=== PATIENT | female | born 1940 | race Caucasian/White ===

== ENCOUNTER 2016-07-04 21:46 | Emergency (ER) | payer MEDICARE, BC ==
[~2016-07-04] VITALS: Ht 165.1 cm; Wt 126.0 kg
[~2016-07-04 21:46] MED LIST: AMLO-147 PO; ASPI-650 PO; ATOR20TA17 PO; CALC600T11 PO; HYDR-762 PO; LIRA0.6P2 SQ; MTF1000T PO; NPH,100V10 SC; OMEP20CA16 PO; RES15 PO; VALS1TAB82 PO
[2016-07-04 21:54] VITALS: Ht 165.1 cm; Wt 126.0 kg
--- NOTE | 2016-07-04 23:02 | ERD ---
ER Documentation Chief Complaint Date/Time DATE: 07/04/16 TIME: 23:00 Chief Complaint shortness of breath/cough/congestion x 1 week HPI Patient is a 76-year-old female with history of bronchitis, diabetes, diastolic CHF who presents with 1 week of nonproductive cough. She feels like there is mucus stuck in her chest that she is not able to cough up. She denies shortness of breath, denies fever, denies chest pain. She complains of pain to her left shoulder and feels like there is a knot in her left arm when she touches it. ROS All systems reviewed and are negative except as per history of present illness. Medications Home Meds Active Scripts Guaifenesin/Pseudoephedrne HCl (Mucinex D ER 600-60 mg Tablet) 1 Each Tab.er.12h , 1 EACH PO BID for 7 Days, TAB Prov:SCOTT WALDROP MD 07/05/16 Albuterol Sulfate* (Ventolin HFA*) 18 Gm Hfa.aer.ad, 2 PUFF INHALATION Q6H, #1 INHALER Prov:SCOTT WALDROP MD 07/05/16 Hydrocodone Bit-Acetaminophen* ([place]*) 10-325 Mg Tablet, 1 TAB PO Q6 Y for PAIN , #12 TAB Prov:CRISTELA CHAPIN MD 02/13/15 Reported Medications Calcium Carbonate* (Calcium Carbonate*) 600 MG Ca Tab, 600 MG PO DAILY, TAB 09/05/14 Omeprazole* (Omeprazole*) 20 Mg Capsule.dr, 20 MG PO DAILY, CAP 09/05/14 Amlodipine Besylate* (Amlodipine Besylate*) 10 Mg Tablet, 10 MG PO DAILY, TAB 05/18/14 Valsartan-Hydrochlorothiazide (Valsartan-HCTZ) 320-25 Mg Tablet, 1 TAB PO DAILY , TAB 05/18/14 Liraglutide (Victoza 3-Kirby) 0.6 Mg/0.1 Ml Pen.injctr, 0.6 MG SQ DAILY, SYR 05/18/14 Nph, Human Insulin Isophane* (Novolin N*) 100 U/Ml Vial, 10-14 UNIT SC AC MEALS , VIAL 05/18/14 Temazepam (Restoril) 15 Mg Cap, 15 MG PO HS 04/30/12 Aspirin (Aspirin) 81 Mg Tablet, 81 MG PO HS 04/30/12 Atorvastatin (Lipitor) 20 Mg Tablet, 20 MG PO HS 04/30/12 Metformin* (Glucophage*) 1,000 Mg Tablet, 1000 MG PO BID 04/30/12 Allergies Allergies: Coded Allergies: No Known Drug Allergies (Verified Allergy, Mild, 07/04/16) PMhx/Soc Past medical history: Diabetes, hypertension, hyperlipidemia, diastolic CHF, bronchitis Past surgical history: Bladder surgery, hip surgery, varicose vein surgery Social history: Denies alcohol or tobacco History of Surgery: No Anesthesia Reaction: No Hx Neurological Disorder: No Hx Respiratory Disorders: No Hx Cardiac Disorders: Yes (HTN. HYPERLIPIDEMIA) Hx Psychiatric Problems: No Hx Miscellaneous Medical Probl: No Hx Alcohol Use: No Hx Substance Use: No Hx Tobacco Use: No FmHx Family History: diabetes, No coronary disease Physical Exam Vitals Vital Signs Date Time Temp Pulse Resp B/P Pulse Ox O2 Delivery O2 Flow Rate FiO2 07/05/16 00:51 68 18 98 21 07/05/16 00:40 98.4 72 20 156/111 97 Room Air 07/04/16 23:05 07/04/16 23:00 98.4 68 18 142/55 95 Room Air 07/04/16 21:54 98.2 77 20 140/67 96 Physical Exam Const: Alert, no acute distress Head: Atraumatic Eyes: Normal Conjunctiva, no pallor or icterus ENT: Normal External Ears, Nose and Mouth. Moist mucous membranes, no JVD Neck: Full range of motion. No meningismus. Resp: Clear to auscultation bilaterally, no wheezes, no rales Cardio: Regular rate and rhythm, no murmurs Abd: Obese, soft, non tender, non distended. Normal bowel sounds Skin: No petechiae or rashes Back: No midline or flank tenderness Ext: No cyanosis, or edema Neur: Awake and alert, cranial nerves II through XII intact bilaterally, moves and feels 4 extremities appropriately. Psych: Normal Mood and Affect Results 24 hrs Laboratory Tests Test 07/04/16 23:20 07/05/16 00:58 Bedside Glucose 95mg/dL B-Type Natriuretic Peptide 777PG/ML Current Medications Medications (Trade) Dose Ordered Sig/Nicolette Route PRN Reason Start Time Stop Time Status Last Admin Dose Admin Tramadol HCl (Ultram) 50 mg ONCE ONCE PO 07/05/16 00:30 07/05/16 00:31 DC 07/05/16 00:32 Albuterol (Proventil 0.083% (Neb)) 5 mg ONCE STAT HHN 07/05/16 00:33 07/05/16 00:36 DC 07/05/16 00:51 Procedures/MDM EKG read by me: Time 2307, rate 78 Rhythm: Normal sinus [place]: Normal Intervals: Normal ST-T waves: no ischemic changes Ectopy: No Q-waves: No Impression: No evidence of ischemia or arrhythmia MDM: Patient is a 76-year-old female with diastolic CHF and chronic cough. She reports nonproductive cough for 1 week. Chest x-ray shows cardiomegaly and mild pulmonary vascular congestion, however the patient's symptoms sound more consistent with bronchitis which the patient has had recurrently for many years. She did improve with a nebulizer treatment. She is not hypoxic on room air. Her symptoms improved somewhat when she sits up straight. She denies any chest or back pain, fever. Reviewed the patient's notes show that she has had chronic cough in the past as well, it is been prescribed an expectorant and inhaler. The patient was noted to have transient elevated blood pressure in the ER. She is currently on 5 antihypertensive agents. Her initial blood pressure was in the 140 systolic. I will give her prescription for an inhaler and an expectorant, and have advised her to follow-up with her PMD in 1-2 days for blood pressure recheck. I do not believe that her cough is being caused by exacerbation of CHF, serious infection, or other condition requiring immediate workup or treatment. I have advised her to return to the ER if she experiences new or worsening symptoms, and to limit her salt and water intake. The patient is noted to be morbidly obese and would benefit from weight loss with regard to her hypertension. Departure Diagnosis: Primary Impression: Cough Additional Impression: Diastolic CHF Congestive heart failure chronicity: chronic Qualified Code: I50.32 - Chronic diastolic congestive heart failure Condition: Stable SCOTT WALDROP MD Jul 04, 2016 23:02
--- NOTE | 2016-07-05 00:27 | RADRPT ---
PROCEDURE: XR Chest. CLINICAL INDICATION: Chest pain. TECHNIQUE: Portable AP semi erect view of the chest was obtained. COMPARISON: 08/15/2013 FINDINGS: The cardiomediastinal silhouette is enlarged. No acute infiltrates are evident. Mild pulmonary vas cular congestion is difficult to exclude as are small bilateral pleural effusions. There is no evid ence of pneumothorax. The osseous structures are intact with no evidence for acute abnormality. RPTAT:HJJR IMPRESSION: Cardiac silhouette enlargement with suggestion of mild pulmonary vascular congestion unable to exclu de congestive heart failure in the proper clinical setting. Physician Zoran Date Time Electronically viewed and signed by Oc Monteiro Physician on 07/05/2016 00:26 /
[2016-07-05] MEDS ORDERED: traMADol 50 MG TAB PO ONE (00:30)
[2016-07-05] MEDS ORDERED: ALBUTEROL 0.083% (NEB) 2.5 MG/3 ML AMP HHN STA (00:33)
[2016-07-05] MEDS ORDERED: GUAI-111 PO (03:26)
[2016-07-05] MEDS ORDERED: ALBU18HF INHALATION (03:26)
[2016-07-05 03:30] VITALS: BP 164/70; PULSE 74; RESP 18; TEMP 98.2
== END 2016-07-05 04:09 | disposition home or self-care (01) ==
LOC: E/R 21:46
DX: R05 Cough (principal); I50.32 Chronic diastolic (congestive) heart failure; I10 Essential (primary) hypertension; E11.9 Type 2 diabetes mellitus without complications; Z79.4 Long term (current) use of insulin; Z79.84 Long term (current) use of oral hypoglycemic drugs
CPT/HCPCS: 71010; 82962; 83880; 93005; 94664

== ENCOUNTER 2016-12-09 18:39 | Emergency (ER) | payer MEDICARE, BC ==
[~2016-12-09] VITALS: Ht 157.5 cm; Wt 125.0 kg
[~2016-12-09 18:39] MED LIST changes: +ALBU18HF INHALATION; +GUAI-111 PO
[2016-12-09 18:45] VITALS: Ht 157.5 cm; Wt 125.0 kg
[2016-12-09 20:01] LABS: BASOPHILS % 0.4 % (0.0-2.0); EOSINOPHILS # 0.2 10^3/ul (0.0-0.5); EOSINOPHILS % 2.1 % (0.0-7.0); HEMATOCRIT 35.2 % (37.0-47.0); HEMOGLOBIN 10.9 g/dl (12.0-16.0); LYMPHOCYTES # 2.3 10^3/ul (0.8-2.9); LYMPHOCYTES % 20.9 % (15.0-51.0); MEAN CORPUSCULAR HEMOGLOBIN 28.8 pg (29.0-33.0); MEAN CORPUSCULAR VOLUME 93.1 fl (82.0-101.0); MEAN PLATELET VOLUME 10.7 fl (7.4-10.4); MONOCYTE # 0.8 10^3/ul (0.3-0.9); NEUTROPHIL # 7.8 10^3/ul (1.6-7.5); NEUTROPHILS % 69.2 % (39.0-77.0); PLATELET COUNT 250 10^3/UL (140-415); RED BLOOD COUNT 3.78 10^6/ul (4.20-5.40); RED CELL DISTRIBUTION WIDTH 15.7 % (11.5-14.5); WHITE BLOOD COUNT 11.2 10^3/ul (4.8-10.8)
--- NOTE | 2016-12-09 20:06 | RADRPT ---
PROCEDURE: CT Temporal Bones. CLINICAL INDICATION: Abscess right ear, pain TECHNIQUE: A CT of the temporal bones was performed on a multidetector CT scanner utilizing high-r esolution axial images. Sagittal and coronal reconstructions were performed. CTDIvol = 29 mGy. To cathleen DLP = 474 mGy*cm. One or more of the following dose reduction techniques were used: Automated e xposure control, Adjustment of the mA and/or kV according to patient size, and/or use of iterative r econstruction technique. COMPARISON: Correlation brain CT 08/15/2013 FINDINGS: RIGHT: Wall thickening of the external auditory canal with inflammatory changes to the soft tissues surroun ding the right year. Opacified right middle ear cavity with moderate fluid in the right mastoid. No aggressive erosive changes seen. No gross soft tissue fluid collection visualized on this limited, n oncontrast study. Tympanic membrane is obscured due to opacification of the middle ear cavity. Ossic ular chain remains intact. Sinus tympani, round window niche and facial recess are opacified. The f acial nerve canal is grossly unremarkable. Internal auditory canal, cochlea, semicircular canals, an d vestibular aqueduct are normal in appearance. Sigmoid sinus plate, jugular bulb and carotid canal are unremarkable. LEFT: External auditory canal is unremarkable. Tympanic membrane is not thickened. Ossicular chain is inta ct. Mastoid and middle ear are well aerated. Sinus tympani, round window niche and facial recess are aerated. The facial nerve canal is unremarkable. Internal auditory canal, cochlea, semicircular can als, and vestibular aqueduct are normal in appearance. Sigmoid sinus plate, jugular bulb and carotid canal are unremarkable. Visualized portions of the brain are unremarkable. IMPRESSION: Right temporal bone: Right otitis externa with right otomastoiditis. No aggressive erosive changes t o the right temporal bone to suggest coalescent mastoiditis. No gross soft tissue abscess visualized on this limited, noncontrast study. Left temporal bone: Unremarkable RPTAT: AA .Jer Hanna MD, Date Time Electronically viewed and signed by .Jer Hanna MD, on 12/09/2016 20:06 .T/
[2016-12-09 20:17] LABS: CREATININE 1.52 mg/dl (0.44-1.00)
[2016-12-09 20:36] LABS: POTASSIUM 5.6 mmol/L (3.5-5.1)
[2016-12-09] MEDS ORDERED: AMPICILLIN/SULB 3 GM/NS (PMX) 100 ML IVPB ONE (21:00)
[2016-12-09] MEDS ORDERED: AMOX1TAB10 PO (21:17)
[2016-12-09] MEDS ORDERED: KETOROLAC 15 MG INJ IV STA (21:20)
--- NOTE | 2016-12-09 22:39 | ERD ---
ER Documentation Chief Complaint Date/Time DATE: 12/09/16 TIME: 22:30 Chief Complaint EAR PAIN SINCE WEDNESDAY, SWOLLEN, DIFFICULTY HEARING,MEDS GIVEN NO RELIEF HPI This is a 76-year-old female presenting to emergency department with right earache 5 days. Patient states she has increased pain and swelling to right ear and earlobe. Patient is having difficulty hearing and states pain is worsening. Patient was started on Keflex and Cortisporin otic solution and by an outside physician. Patient states since then pain has gotten worse. Denies fevers or chills. No sore throat, difficulty swallowing or drooling. No cough , shortness of breath or difficulty breathing. No chest pain or heart palpitations. ROS All systems reviewed and are negative except as per history of present illness. Medications Home Meds Active Scripts Amoxicillin/Potassium Clav (Amox-Clav 875-125 mg Tablet) 875-125 mg Tab, 1 TAB PO BID for 10 Days, #20 TAB Prov:ONEL WEBBER NP 12/09/16 Guaifenesin/Pseudoephedrne HCl (Mucinex D ER 600-60 mg Tablet) 1 Each Tab.er.12h , 1 EACH PO BID for 7 Days, TAB Prov:SCOTT WALDROP MD 07/05/16 Albuterol Sulfate* (Ventolin HFA*) 18 Gm Hfa.aer.ad, 2 PUFF INHALATION Q6H, #1 INHALER Prov:SCOTT WALDROP MD 07/05/16 Hydrocodone Bit-Acetaminophen* ([place]*) 10-325 Mg Tablet, 1 TAB PO Q6 Y for PAIN , #12 TAB Prov:CRISTELA CHAPIN MD 02/13/15 Reported Medications Calcium Carbonate* (Calcium Carbonate*) 600 MG Ca Tab, 600 MG PO DAILY, TAB 09/05/14 Omeprazole* (Omeprazole*) 20 Mg Capsule.dr, 20 MG PO DAILY, CAP 09/05/14 Amlodipine Besylate* (Amlodipine Besylate*) 10 Mg Tablet, 10 MG PO DAILY, TAB 05/18/14 Valsartan-Hydrochlorothiazide (Valsartan-HCTZ) 320-25 Mg Tablet, 1 TAB PO DAILY , TAB 05/18/14 Liraglutide (Victoza 3-Kirby) 0.6 Mg/0.1 Ml Pen.injctr, 0.6 MG SQ DAILY, SYR 05/18/14 Nph, Human Insulin Isophane* (Novolin N*) 100 U/Ml Vial, 10-14 UNIT SC AC MEALS , VIAL 05/18/14 Temazepam (Restoril) 15 Mg Cap, 15 MG PO HS 04/30/12 Aspirin (Aspirin) 81 Mg Tablet, 81 MG PO HS 04/30/12 Atorvastatin (Lipitor) 20 Mg Tablet, 20 MG PO HS 04/30/12 Metformin* (Glucophage*) 1,000 Mg Tablet, 1000 MG PO BID 04/30/12 Allergies Allergies: Coded Allergies: No Known Drug Allergies (Verified Allergy, Mild, 12/09/16) PMhx/Soc Medical and Surgical Hx: pt denies Medical Hx, pt denies Surgical Hx History of Surgery: No Anesthesia Reaction: No Hx Neurological Disorder: No Hx Respiratory Disorders: No Hx Cardiac Disorders: Yes (HTN. HYPERLIPIDEMIA) Hx Psychiatric Problems: No Hx Miscellaneous Medical Probl: Yes (DM) Hx Alcohol Use: No Hx Substance Use: No Hx Tobacco Use: No Smoking Status: Never smoker Physical Exam Vitals Vital Signs Date Time Temp Pulse Resp B/P Pulse Ox O2 Delivery O2 Flow Rate FiO2 12/09/16 18:45 98.9 80 18 164/74 99 Physical Exam Const: No acute distress, alert Head: Atraumatic Eyes: Normal Conjunctiva ENT: Normal External Ears, Nose and Mouth. Erythema of right ear canal and swelling of right pinna. No mastoid tenderness or erythema to right mastoid. Normal TM and ear canal to left ear. Neck: Full range of motion..~ No meningismus. Resp: Clear to auscultation bilaterally Cardio: Regular rate and rhythm, no murmurs Abd: Soft, non tender, non distended. Normal bowel sounds Skin: No petechiae or rashes Back: No midline or flank tenderness Ext: No cyanosis, or edema Neur: Awake and alert Psych: Normal Mood and Affect Result Diagram: 12/09/16193912/09/161939 Results 24 hrs Laboratory Tests Test 12/09/16 19:40 White Blood Count 11.210^3/ul Red Blood Count 3.7810^6/ul Hemoglobin 10.9g/dl Hematocrit 35.2% Mean Corpuscular Volume 93.1fl Mean Corpuscular Hemoglobin 28.8pg Mean Corpuscular Hemoglobin Concent 31.0g/dl Red Cell Distribution Width 15.7% Platelet Count 05549^3/UL Mean Platelet Volume 10.7fl Neutrophils % 69.2% Lymphocytes % 20.9% Monocytes % 7.0% Eosinophils % 2.1% Basophils % 0.4% Nucleated Red Blood Cells % 0.0/100WBC Neutrophils # 7.810^3/ul Lymphocytes # 2.310^3/ul Monocytes # 0.810^3/ul Eosinophils # 0.210^3/ul Basophils # 0.010^3/ul Nucleated Red Blood Cells # 0.010^3/ul Sodium Level 140mmol/L Potassium Level 5.6mmol/L Chloride Level 108mmol/L Carbon Dioxide Level 26mmol/L Anion Gap 12 Blood Urea Nitrogen 48mg/dl Creatinine 1.52mg/dl Glucose Level 166mg/dl Calcium Level 9.0mg/dl Current Medications Medications (Trade) Dose Ordered Sig/Nicolette Route PRN Reason Start Time Stop Time Status Last Admin Dose Admin Ampicillin Sodium/ Sulbactam Sodium (Unasyn 3gm/NS (Pmx)) 100 ml @ 100 mls/hr ONCE ONCE IVPB 12/09/16 21:00 12/09/16 21:59 DC 12/09/16 20:59 Ketorolac Tromethamine (Toradol) 15 mg ONCE STAT IV 12/09/16 21:20 12/09/16 21:22 DC 12/09/16 21:44 Procedures/[place] [id number] Radiology Main Line: [phone] DIAGNOSTIC IMAGING REPORT Patient: TANIA ELMORE : 1940 Age: 76 Sex: F MR #: [id number] DOS: 12/09/161922 Ordering MD: ONEL WEBBER NP Location: [facility] Room/Bed: PROCEDURE: CT Temporal Bones. CLINICAL INDICATION: Abscess right ear, pain TECHNIQUE: A CT of the temporal bones was performed on a multidetector CT scanner utilizing high-resolution axial images. Sagittal and coronal reconstructions were performed. CTDIvol = 29 mGy. Total DLP = 474 mGy*cm. One or more of the following dose reduction techniques were used: Automated exposure control, Adjustment of the mA and/or kV according to patient size, and/ or use of iterative reconstruction technique. COMPARISON: Correlation brain CT 08/15/2013 FINDINGS: RIGHT: Wall thickening of the external auditory canal with inflammatory changes to the soft tissues surrounding the right year. Opacified right middle ear cavity with moderate fluid in the right mastoid. No aggressive erosive changes seen. No gross soft tissue fluid collection visualized on this limited, noncontrast study. Tympanic membrane is obscured due to opacification of the middle ear cavity. Ossicular chain remains intact. Sinus tympani, round window niche and facial recess are opacified. The facial nerve canal is grossly unremarkable. Internal auditory canal, cochlea, semicircular canals, and vestibular aqueduct are normal in appearance. Sigmoid sinus plate, jugular bulb and carotid canal are unremarkable. LEFT: External auditory canal is unremarkable. Tympanic membrane is not thickened. Ossicular chain is intact. Mastoid and middle ear are well aerated. Sinus tympani, round window niche and facial recess are aerated. The facial nerve canal is unremarkable. Internal auditory canal, cochlea, semicircular canals, and vestibular aqueduct are normal in appearance. Sigmoid sinus plate, jugular bulb and carotid canal are unremarkable. Visualized portions of the brain are unremarkable. IMPRESSION: Right temporal bone: Right otitis externa with right otomastoiditis. No aggressive erosive changes to the right temporal bone to suggest coalescent mastoiditis. No gross soft tissue abscess visualized on this limited, noncontrast study. Left temporal bone: Unremarkable MDM: 76 year old female, with past medical history of DM, Hypertension and hypercholesterolemia, presents to ER with right earache worsening over 5 days. Patient failed outpatient therapy with Keflex and Cortisporin otic solution. Patient continues to have pain and swelling of right pinna and ear canal. CT temporal bones reviewed by radiologist as Right temporal bone: Right otitis externa with right otomastoiditis. No aggressive erosive changes to the right temporal bone to suggest coalescent mastoiditis. No gross soft tissue abscess visualized on this limited, noncontrast study. Left temporal bone: Unremarkable. Labs show no significant anemia or infection. BMP shows BUN 48 and creatinine 1.52, likely chronic due to patient's history of DM, HTN and hypercholesterolemia. Consulted Dr. Marquis regarding this patient and we agree that patient will recieve a dose of Unasyn 3gm IVPB here and then be discharged with Augmentin . Vitals are stable. Patient remains alert and oriented. Patient is appropriate for outpatient management will be given prescription for Augmentin. Instructed patient to follow-up with primary care provider in the next 2-3 days for reassessment and additional management. Return to ED for any high fever, chest pain, difficulty breathing, shortness breath, wheezing, vomiting, diarrhea, abdominal pain or any new or worsening symptoms. Patient verbalizes understanding. All questions answered at discharge. Welsh translation used during this encounter. Disclaimer: Inadvertent spelling and grammatical errors are likely due to EHR/ dictation software use and do not reflect on the overall quality of patient care. Also, please note that the electronic time recorded on this note does not necessarily reflect the actual time of the patient encounter. Departure Diagnosis: Primary Impression: Otitis externa Otitis externa type: unspecified type Chronicity: acute Laterality: right Qualified Code: H60.501 - Acute otitis externa of right ear, unspecified type Condition: Stable Patient Instructions: External Ear Infection (Adult) Referrals[facility] Usted se ahll hecho un examen mdico de control que le indica que no est en mayo condicin que requiera tratamiento urgente en el Departamento de Emergencia. Un estudio ms profundo y el tratamiento de beltran condicin pueden esperar sin ningn riesgo hasta que usted sea atendida/o en el consultorio de beltran mdico o mayo cl alhponse. Es responsabilidad suya arreglar mayo luis para el seguimiento del adal. MANEJO DE CONDICIONES NO URGENTES EN EL FUTURO 1) Si usted tiene un mdico de atencin primaria: Usted debera llamar a beltran mdico de atencin primaria antes de venir al departamento de emergencia. Despus de las horas de consultorio, beltran doctor o beltran asociado/a est disponible por telfono. El mdico o enfermero de marvin en el servicio telefnico puede asesorarle por laura medio para atender el problema, o adal contrario se puede programar mayo luis. 2) Si usted no tiene un mdico de atencin primaria: Llame al mdico o clnica de referencia que aparece abajo denisa las horas de consultorio para hacer mayo luis para que le vean. CLINICAS: [facility] [phone] [facility] [phone] [facility] [phone] [facility] [phone] [facility] [phone] [address] [facility] [phone] [address] [facility]. [facility] () Usted se hall hecho un examen mdico de control que le indica que no est en mayo condicin que requiera tratamiento urgente en el Departamento de Emergencia. Un estudio ms profundo y el tratamiento de beltran condicin pueden esperar sin ningn riesgo hasta que usted sea atendida/o en el consultorio de beltran mdico o mayo cl alphonse. Es responsabilidad suya arreglar mayo luis para el seguimiento del adal. MANEJO DE CONDICIONES NO URGENTES EN EL FUTURO 1) Si usted tiene un mdico de atencin primaria: Usted debera llamar a beltran mdico de atencin primaria antes de venir al departamento de emergencia. Despus de las horas de consultorio, beltran doctor o beltran asociado/a est disponible por telfono. El mdico o enfermero de marvin en el servicio telefnico puede asesorarle por laura medio para atender el problema, o adal contrario se puede programar mayo luis. 2) Si usted no tiene un mdico de atencin primaria: Llame al mdico o condado institucions de referencia que aparece abajo denisa las horas de consultorio para hacer mayo luis para que le vean. SI USTED NO PUEDE PAGAR PARA MADHURI UN MEDICO puede ir a: [facility] [address] [place] [address] [facility] [address] [place] [address] [facility] [address] [place] [address] [facility] [address] [place], [place] [id number] Additional Instructions: Llame al doctor MAANA y chet mayo LUIS PARA DENTRO DE 2-3 VELASCO.Dgale a la secretaria que nosotros le instruimos hacer esta luis.Avise o llame si beltran condicin se empeora antes de la luis. Regresa aqui si peor o no mejor. Regresar a ED por fiebre rebeca, dolor en el pecho, dificultad para respirar, respiracin entrecortada, sibilancias, vmitos, diarrea, dolor abdominal o cualquier sntoma nuevo o que empeora. ONEL WEBBER NP Dec 09, 2016 22:39
== END 2016-12-09 22:10 | disposition home or self-care (01) ==
LOC: FTE 18:39
DX: H60.501 Unspecified acute noninfective otitis externa, right ear (principal); I10 Essential (primary) hypertension; E11.9 Type 2 diabetes mellitus without complications; Z79.82 Long term (current) use of aspirin; Z79.84 Long term (current) use of oral hypoglycemic drugs
CPT/HCPCS: 36415; 70480; 80048; 85025; 96374; 96375; 99285; J0295; J1885

== ENCOUNTER 2017-05-10 12:54 | Emergency (ER) | END 2017-05-10 18:44 | disposition home or self-care (01) ==

== ENCOUNTER 2017-07-06 10:54 | Day surgery (SDC) | END 2017-07-06 15:10 | disposition home or self-care (01) ==

== ENCOUNTER 2017-08-11 21:00 | Inpatient (IN) | END 2017-08-24 11:00 | disposition home health service (06) | DRG 945 ==

== ENCOUNTER 2018-09-26 11:34 | Emergency (ER) | payer MEDICARE, BC ==
[~2018-09-26] VITALS: Ht 157.5 cm; Wt 121.1 kg
[~2018-09-26 11:34] MED LIST changes: -AMLO-147 PO; -ASPI-650 PO; +ASPI-903 PO; +AZIT250T13 PO; -CALC600T11 PO; +CHOL100062 PO; +DEXL60CA2 PO; -GUAI-111 PO; +GUAI-227 PO; -HYDR-762 PO; +INSU100I31 SQ; +LIRA0.6P SQ; -LIRA0.6P2 SQ; +LOSA100T15 PO; +METF500T3 PO; +METO-335 PO; -MTF1000T PO; +NOVO3I SC; -NPH,100V10 SC; -OMEP20CA16 PO; -RES15 PO; +UMEC1DIS INHALATION; -VALS1TAB82 PO
[2018-09-26 11:49] VITALS: Ht 157.5 cm; Wt 121.1 kg
--- NOTE | 2018-09-26 12:36 | ERD ---
ER Documentation Chief Complaint Chief Complaint back pain no relief w/shots radiating to arms. HPI 77-year-old female with a history of hypertension, type 2 diabetes, CKD, CHF, sleep apnea, GI bleed, gastritis with erosion, with hospital admission in presents to the emergency department, brought in by daughter, complaining of back pain, dull, constant during the last 3 days. The pain is exacerbated by movement. Otherwise, the patient denies chest pain, no shortness of breath, no palpitations, no dizziness, no weakness. ROS All systems reviewed and are negative except as per history of present illness. Medications Home Meds Reported Medications Guaifenesin-Dextromethorphan* (Robafen* DM) 100MG/10MG/5ML Liquid, 5 ML PO Q6H PRN for COUGH, ML 04/23/18 Azithromycin* (Azithromycin*) 250 Mg Tablet, 250 MG PO DAILY, #4 TAB PER PT 04-23-18 DAY#4 ON ANTIBIOTICS 04/23/18 Albuterol Sulfate* (Ventolin HFA*) 18 Gm Hfa.aer.ad, 2 PUFF INHALATION Q6H PRN for WHEEZING AND SOB, #1 INHALER 04/23/18 Umeclidinium Brm-Vilanterol Tr (Anoro Ellipta) 62.5-25 Mcg Disk.w.dev, 1 EACH INHALATION DAILY, #1 DISK 04/23/18 Aspirin* (Aspirin* Chew) 81 Mg Tab.chew, 81 MG PO DAILY, TAB.CHEW 04/23/18 Insulin Degludec (Tresiba Flextouch U-100) 100 Unit/1 Ml Insuln.pen, 30 UNIT SQ QHS 04/23/18 Liraglutide (Victoza 2-Kirby) 0.6 Mg/0.1 Ml Pen.injctr, 1.2 MG SQ DAILY, SYR 04/23/18 Insulin Aspart* (Novolog Insulin Pen*) 100 Unit/Ml Soln, 10 UNIT SC WITH MEALS, EA 04/23/18 Cholecalciferol* (Vitamin D3*) 1,000 Unit Tablet, 5000 UNIT PO DAILY, TAB 04/23/18 Losartan Potassium* (Losartan Potassium*) 100 Mg Tablet, 100 MG PO DAILY, TAB 04/23/18 Metformin* (Glucophage* XR) 500 Mg Tab.sr.24h, 1000 MG PO DAILY, #30 TAB 04/23/18 Metoprolol Succinate* (Toprol XL*) 25 Mg Tab.sr.24h, 25 MG PO DAILY, #30 TAB 04/23/18 Dexlansoprazole (Dexilant) 60 Mg drRaadmp, 60 MG PO DAILY, #30 CAP 04/23/18 Atorvastatin (Lipitor) 20 Mg Tablet, 20 MG PO HS 04/30/12 Allergies Allergies: Coded Allergies: No Known Drug Allergies (Verified Allergy, Mild, 04/25/18) PMhx/Soc History of Surgery: Yes (thyroidectomy) Anesthesia Reaction: No Hx Neurological Disorder: No Hx Respiratory Disorders: Yes Hx Cardiac Disorders: Yes (htn) Hx Psychiatric Problems: No Hx Miscellaneous Medical Probl: Yes (HTN, obesity,CKD,chronic diastolic heart failure,DMII) Hx Alcohol Use: No Hx Substance Use: No Hx Tobacco Use: No FmHx Family History: diabetes Physical Exam Vitals Vital Signs Date Temp Pulse Resp B/P (MAP) Pulse Ox O2 O2 Flow FiO2 Time Delivery Rate 09/26/18 97.7 82 18 108/54 97 11:49 (72) Physical Exam Const: No acute distress, morbidly obese Head: Atraumatic Eyes: Normal Conjunctiva ENT: Normal External Ears, Nose and Mouth. Neck: Full range of motion. No meningismus. Resp: Diffuse rhonchi to auscultation bilaterally Cardio: Regular rate and rhythm, no murmurs Abd: Soft, non tender, non distended. Normal bowel sounds Skin: No petechiae or rashes Back: No midline or flank tenderness Ext: No cyanosis, bilateral 2+ edema Neur: Awake and alert Psych: Normal Mood and Affect Result Diagram: 09/26/18 1303 09/26/18 1303 Results 24 hrs Laboratory Tests Test 09/26/18 13:03 09/26/18 13:04 White Blood Count 10.7 10^3/ul Red Blood Count 3.83 10^6/ul Hemoglobin 9.6 g/dl Hematocrit 31.1 % Mean Corpuscular Volume 81.2 fl Mean Corpuscular Hemoglobin 25.1 pg Mean Corpuscular Hemoglobin Concent 30.9 g/dl Red Cell Distribution Width 17.1 % Platelet Count 275 10^3/UL Mean Platelet Volume 9.8 fl Immature Granulocytes % 0.400 % Neutrophils % 64.7 % Lymphocytes % 24.3 % Monocytes % 7.9 % Eosinophils % 2.5 % Basophils % 0.2 % Nucleated Red Blood Cells % 0.0 /100WBC Immature Granulocytes # 0.040 10^3/ul Neutrophils # 6.9 10^3/ul Lymphocytes # 2.6 10^3/ul Monocytes # 0.8 10^3/ul Eosinophils # 0.3 10^3/ul Basophils # 0.0 10^3/ul Nucleated Red Blood Cells # 0.0 10^3/ul Sodium Level 141 mmol/L Potassium Level 5.3 mmol/L Chloride Level 106 mmol/L Carbon Dioxide Level 24 mmol/L Anion Gap 11 Blood Urea Nitrogen 58 mg/dl Creatinine 2.10 mg/dl Est Glomerular Filtrat Rate mL/min mL/min Glucose Level 126 mg/dl Calcium Level 8.5 mg/dl Total Bilirubin 0.2 mg/dl Direct Bilirubin 0.00 mg/dl Indirect Bilirubin 0.2 mg/dl Aspartate Amino Transf (AST/SGOT) 16 IU/L Alanine Aminotransferase (ALT/SGPT) 15 IU/L Alkaline Phosphatase 103 IU/L B-Type Natriuretic Peptide 366 PG/ML Total Protein 6.9 g/dl Albumin 3.5 g/dl Globulin 3.40 g/dl Albumin/Globulin Ratio 1.02 Lipase 109 U/L Urine Color YELLOW Urine Clarity SLIGHTLY CLOUDY Urine pH 5.0 Urine Specific [place] 1.013 Urine Ketones NEGATIVE mg/dL Urine Nitrite NEGATIVE mg/dL Urine Bilirubin NEGATIVE mg/dL Urine Urobilinogen NEGATIVE mg/dL Urine Leukocyte Esterase NEGATIVE Primo/ul Urine Microscopic RBC 0 /HPF Urine Microscopic WBC 0 /HPF Urine Squamous Epithelial Cells FEW /HPF Urine Bacteria FEW /HPF Urine Hemoglobin NEGATIVE mg/dL Urine Glucose NEGATIVE mg/dL Urine Total Protein NEGATIVE mg/dl Current Medications Medications Dose Sig/Nicolette Start Time Status Last (Trade) Ordered Route PRN Stop Time Admin Dose Reason Admin Morphine 2 mg ONCE STAT 09/26/18 DC Sulfate IV 13:54 09/26/18 (morphine) 13:57 Albuterol 5 mg ONCE STAT 09/26/18 DC (Proventil HHN 13:54 09/26/18 0.083% (Neb)) 13:57 Ipratropium 0.5 mg ONCE ONCE 09/26/18 DC [place] N 14:00 09/26/18 (Atrovent 14:01 0.02% (Neb)) DIAGNOSTIC IMAGING REPORT Patient: TANIA ELMORE : 1940 Age: 78 Sex: F MR #: [id number] DOS: 09/26/18 1256 Ordering MD: DALILA SARKAR MD Location: [facility] Room/Bed: PROCEDURE: XR chest. CLINICAL INDICATION: Upper back pain TECHNIQUE: 2 views of the chest were obtained. COMPARISON: 08/15/2013 FINDINGS: There is mild bibasilar atelectasis. There is eventration of the right hemidiaphragm. There is no pleural effusion or pneumothorax. The cardiac and mediastinal contours are within normal limits. The aorta is tortuous and atherosclerotic. Multilevel degenerative changes are seen in the spine. A large anteriorly projecting osteophyte is identified in the upper thoracic spine on the lateral view. IMPRESSION: 1. Bibasilar atelectasis. 2. Large anteriorly projecting osteophyte in the upper thoracic spine. RPTAT: AAEE EKG read by me: Rate/Rhythm: Regular rate and rhythm at a rate of 80 Intervals: Normal No acute ST changes. No T wave inversion Impression: No evidence of acute ischemia or arrhythmia Procedures/MDM At the time of discharge, patient nontoxic, vital signs stable, no gross neurologic deficit. differential diagnosis include but not limited to: lumbar sprain/strain, sciatica, herniated disk, UTI less likely pyelo, kidney stone. Neurovascular exam grossly intact. no clinical findings suggestive of acute infectious process, no acute deformity, no edema, no rashes. All medical records from previous admissions reviewed including CT abdomen of 2018 which did not show evidence of aortic aneurysm. Physical examination and clinical presentation consistent most likely with acute on chronic back pain and at atelectasis. Labs requested and reviewed: CBC: No acute changes compared with previous one; no evidence of leukocytosis, platelets normal. CMP: Potassium elevated but at baseline, kidney function elevated but mostly at baseline, normal liver function, normal lipase, no evidence of metabolic acidosis. Urine: No evidence of infection. During the ED course the patient received treatment with morphine IV and respiratory treatment presenting overall improvement of the symptoms. Results and clinical impression discussed with the patient who agrees with management. The patient is stable to be treated outpatient and will be discharged home with recommendations and close monitoring The patient was informed that the evaluation in the emergency department has been done to rule out an acute emergency, therefore, chronic conditions like malignancy or autoimmune diseases have not been evaluated; therefore, the patient was instructed to follow up with the primary care provider in the next 48h. If symptoms persist, worsen or new symptoms develop, then patient should return to the ED immediately. Instructions explained and given to patient with acknowledgment and demonstrated understanding. Disclaimer: Inadvertent spelling and grammatical errors are likely due to EHR/d ictation software use and do not reflect on the overall quality of patient care. Also, please note that the electronic time recorded on this note does not necessarily reflect the actual time of the patient encounter. Departure Diagnosis: Primary Impression: Back pain Additional Impressions: History of pneumonia History of CHF (congestive heart failure) Atelectasis of both lungs Condition: Stable Patient Instructions: Back Pain W/ Sciatica, Back Pain (Acute Or Chronic) Additional Instructions: Muchas myrna por [facility] para beltran servicio. Esperamos que en beltran visita a la jc de emergencia beltran problema medico haya sido solucionado y que se sienta mucho mejor. Para estar seguros que beltran mejoria sigue en proceso, le pedimos el favor de hacer mayo venus de seguimiento medico con beltran doctor primario en los proximos 2-4 gonzalez. Lleve con usted estos documentos y las medicinas recetadas. Si ree sintomas empeoran, NO SE ESPERE, por favor regrese a jc de emergencia INMEDIATAMENTE. En adal que usted no tenga un mdico de atencin primaria: Llame al mdico o clnica comunitaria de referencia que aparece abajo denisa las horas de consultorio para hacer mayo venus para que le vean. CLINICAS: [facility] [phone] [facility] [place] [id number] [phone] [facility] [phone] [place] [phone] [facility] [phone] [facility]. [phone] DALILA WASHBURN MD Sep 26, 2018 12:36
[2018-09-26] MEDS ORDERED: ALBUTEROL 0.083% (NEB) 2.5 MG/3 ML AMP HHN STA (13:54)
[2018-09-26] MEDS ORDERED: morphine 2 MG INJ IV STA (13:54)
[2018-09-26] MEDS ORDERED: IPRATROPIUM (NEB) 0.5 MG/2.5 ML AMP HHN ONE (14:00)
[2018-09-26] MEDS ORDERED: HYDR-4011 PO (14:58)
[2018-09-26] MEDS ORDERED: ALBU8.5H8 INH (14:58)
[2018-09-26] MEDS ORDERED: AMOX500C2 PO (14:58)
[2018-09-26] MEDS ORDERED: AZIT250T PO (14:58)
[2018-09-26 15:18] VITALS: BP 127/60; PULSE 77; RESP 18
== END 2018-09-26 15:18 | disposition home or self-care (01) ==
LOC: FTE 11:34
DX: M54.9 Dorsalgia, unspecified (principal); J98.11 Atelectasis; I12.9 Hypertensive chronic kidney disease with stage 1 through stage 4 chronic kidney disease, or unspecified chronic kidney disease; N18.9 Chronic kidney disease, unspecified; I11.0 Hypertensive heart disease with heart failure; I50.9 Heart failure, unspecified; E11.22 Type 2 diabetes mellitus with diabetic chronic kidney disease; E66.9 Obesity, unspecified; Z87.01 Personal history of pneumonia (recurrent); Z79.82 Long term (current) use of aspirin; Z79.4 Long term (current) use of insulin; Z68.42 Body mass index [BMI] 45.0-49.9, adult
CPT/HCPCS: 36415; 71046; 80053; 81001; 83690; 83880; 85025; 93005; 94664; 96374; 99285; J2270; 81003